=== PATIENT | female | born 1955 | race Caucasian/White ===

== ENCOUNTER → 2017-02-18 | Outpatient (CLI) | payer BC, OTHER ==
[~2017-02-18] MED LIST: GASTROGRAFIN SOLUTION 30ML (Q9963) As Ordered ONE; ISOVUE-370 76% 100ML VIAL (Q9967) As Ordered ONE
--- NOTE | 2017-02-19 09:59 | REP ---
CONTRAST ENHANCED CT OF THE ABDOMEN AND PELVIS: CLINICAL: Right upper quadrant pain. TECHNIQUE: Axial contrast-enhanced images from the lung bases to the pubic symphysis using oral (per protocol) and 100 mL of Isovue 370 intravenous contrast material with coronal and sagittal reformations. COMPARISON: None. FINDINGS: Lung bases are clear. Minimal scarring at the lingula is suggested. Visualized heart and pericardium are normal. Fatty infiltration into the liver is appreciated without focal hepatic lesion. The patient is status post cholecystectomy. The spleen, pancreas, bilateral adrenal glands and kidneys are normal. The right kidney includes a 4 cm mid pole cyst. The enteric system including some dominant small and large bowel is without obstruction or acute inflammatory process. Normal terminal ileum and appendix are identified in the right lower quadrant. The pelvis demonstrates normal bladder and age-appropriate uterus/adnexa. No pelvic fluid or ascites. No adenopathy. The abdominal aorta and vasculature is within normal limits. The surrounding musculoskeletal structures demonstrate age-related changes without focal osseous abnormality. IMPRESSION: 1. 4 cm simple right renal cyst. 2. Fatty infiltration to the liver without focal hepatic lesion. 3. No further acute abdominal pelvic pathology appreciated. Signed by Robert Keane MD 02/21/2017 08:22 A
== END ==
LOC: M RAD 15:56
PROVIDERS: ATTEND Family Medicine
DX: N28.1 Cyst of kidney, acquired (principal); K76.0 Fatty (change of) liver, not elsewhere classified
CPT/HCPCS: 74177; Q9963; Q9967

== ENCOUNTER → 2017-12-02 | Outpatient (CLI) | payer BC, OTHER ==
[2017-12-02 14:35] LABS: ANION GAP 10 MEQ/L (8-16); BLOOD UREA NITROGEN 19 MG/DL (7-18); CALCIUM LEVEL 9.4 MG/DL (8.8-10.2); CARBON DIOXIDE LEVEL 29 MEQ/L (21-32); CHLORIDE LEVEL 98 MEQ/L (98-107); CREATININE FOR GFR 0.76 MG/DL (0.55-1.30); GLOMERULAR FILTRATION RATE > 60.0 (>45); GLUCOSE, FASTING 84 MG/DL (70-100); POTASSIUM SERUM 4.4 MEQ/L (3.5-5.1); SODIUM LEVEL 137 MEQ/L (136-145); URIC ACID 6.5 MG/DL (2.6-6.0)
== END ==
LOC: M SMT 09:49
DX: M79.674 Pain in right toe(s) (principal)
CPT/HCPCS: 84550

== ENCOUNTER → 2018-10-07 | Outpatient (CLI) | payer BC, OTHER ==
[2018-10-07 12:29] LABS: ALT/SGPT 21 U/L (12-78); BILIRUBIN,TOTAL 0.3 MG/DL (0.2-1.0); BLOOD UREA NITROGEN 16 MG/DL (7-18); CALCIUM LEVEL 9.4 MG/DL (8.8-10.2); CARBON DIOXIDE LEVEL 30 MEQ/L (21-32); CHLORIDE LEVEL 106 MEQ/L (98-107); CHOLESTEROL LEVEL 206 MG/DL (<200); CHOLESTEROL RISK RATIO 3.614 (<5); CREATININE FOR GFR 0.87 MG/DL (0.55-1.30); GLOMERULAR FILTRATION RATE > 60.0 (>45); GLUCOSE, FASTING 87 MG/DL (70-100); HDL CHOLESTEROL 57 MG/DL (>40); LDL CHOLESTEROL 116 MG/DL (<100); NON-HDL-C 149 MG/DL; POTASSIUM SERUM 4.8 MEQ/L (3.5-5.1); SODIUM LEVEL 142 MEQ/L (136-145); TOTAL PROTEIN 7.1 GM/DL (6.4-8.2); TRIGLYCERIDES LEVEL 164 MG/DL (<150)
== END ==
LOC: M SMT 09:37
PROVIDERS: ATTEND Family Medicine
DX: E78.2 Mixed hyperlipidemia (principal)

== ENCOUNTER → 2018-10-13 | Outpatient (CLI) | payer BC, OTHER ==
--- NOTE | 2018-10-13 13:53 | REP ---
Clinical: Right upper arm pain. Technique: AP and lateral views of the right humerus. Findings: Age-related changes at the shoulder joint noted. No acute fracture dislocation. Surrounding soft tissues normal. Impression: No acute fracture dislocation. Electronically Signed by Robert Keane MD 10/13/2018 01:45 P
== END ==
LOC: M SMT 13:04
PROVIDERS: ATTEND Family Medicine
DX: M79.622 Pain in left upper arm (principal)

== ENCOUNTER → 2019-09-08 | Outpatient (CLI) | payer BC, OTHER ==
[2019-09-08 14:12] LABS: BASO % 0.2 % (0.0-1.0); EOS # 0.1 10^3/uL (0.0-0.5); EOS % 1.5 % (0.0-3.0); HEMATOCRIT 37.1 % (36.0-47.0); HEMOGLOBIN 12.7 g/dl (12.0-15.5); LYMPH # 1.1 10^3/uL (1.5-5.0); LYMPH % 23.2 % (24.0-44.0); MEAN CORPUSCULAR HEMOGLOBIN 31.5 pg (27.0-33.0); MEAN CORPUSCULAR HGB CONC 34.2 g/dl (32.0-36.5); MEAN CORPUSCULAR VOLUME 92.1 fl (80.0-96.0); MONO # 0.5 10^3/uL (0.0-0.8); NEUTROPHILS # 3.1 10^3/uL (1.5-8.5); NEUTROPHILS % 64.9 % (36.0-66.0); PLATELET COUNT, AUTOMATED 298 10^3/uL (150-450); RED BLOOD COUNT 4.03 10^6/uL (4.00-5.40); WHITE BLOOD COUNT 4.8 10^3/uL (4.0-10.0)
[2019-09-08 14:39] LABS: ALBUMIN 3.9 GM/DL (3.2-5.2); ALT/SGPT 31 U/L (12-78); BILIRUBIN,TOTAL 0.4 MG/DL (0.2-1.0); BLOOD UREA NITROGEN 12 MG/DL (7-18); CALCIUM LEVEL 9.3 MG/DL (8.8-10.2); CARBON DIOXIDE LEVEL 31 MEQ/L (21-32); CHLORIDE LEVEL 95 MEQ/L (98-107); CHOLESTEROL LEVEL 203 MG/DL (<200); CHOLESTEROL RISK RATIO 3.759 (<5); FREE T4 1.19 NG/DL (0.76-1.46); GLOMERULAR FILTRATION RATE > 60.0 (>45); GLUCOSE, FASTING 84 MG/DL (70-100); HDL CHOLESTEROL 54 MG/DL (>40); LDL CHOLESTEROL 116 MG/DL (<100); NON-HDL-C 149 MG/DL; POTASSIUM SERUM 4.3 MEQ/L (3.5-5.1); SODIUM LEVEL 130 MEQ/L (136-145); TOTAL PROTEIN 7.1 GM/DL (6.4-8.2); TRIGLYCERIDES LEVEL 163 MG/DL (<150)
== END ==
LOC: M PLALAB 10:44
PROVIDERS: ATTEND Family Medicine
DX: E78.2 Mixed hyperlipidemia (principal); I10 Essential (primary) hypertension

== ENCOUNTER → 2021-07-24 | Outpatient (CLI) | payer BC, OTHER | LOC: M PLAIMG 10:42 | PROVIDERS: ATTEND Nurse Practitioner Adult Health | DX: R10.31 Right lower quadrant pain (principal) ==

== ENCOUNTER → 2021-10-18 | Outpatient (CLI) | payer BC, OTHER | LOC: M RAD 08:04 | PROVIDERS: ATTEND Nurse Practitioner Adult Health | DX: I10 Essential (primary) hypertension (principal) ==

== ENCOUNTER → 2022-02-18 | Outpatient (CLI) | payer BC, OTHER | LOC: M PLAIMG 13:56 | PROVIDERS: ATTEND Nurse Practitioner Adult Health | DX: M51.37 Other intervertebral disc degeneration, lumbosacral region (principal) ==